=== PATIENT | male | born 1950 | race Caucasian/White ===

== ENCOUNTER 2023-02-27 09:11 | Outpatient (RCR) | payer MEDICARE, OTHER, SELFPAY ==
[2023-02-27 11:04] LABS: Creatinine* 0.7 mg/dL (0.5-1.5); Est. Creatinine Clearance* 60.26; Estimated Glomerular Filt Rate 98 ml/min
== END 2023-08-26 23:59 | disposition home or self-care (01) ==
LOC: CCIC 09:11
PROVIDERS: Visit Provider Clinical Nurse Specialist
DX: C78.1 Secondary malignant neoplasm of mediastinum (principal)
CPT/HCPCS: 36415; 36592; 82565